=== PATIENT | male | born 1975 ===

== ENCOUNTER → 2023-01-25 16:00 | Outpatient (CLI) | payer OTHER, SELFPAY ==
--- NOTE | 2023-01-25 16:02 | DI.US.S_ITS ---
PROCEDURE: US ABDOMEN LIMITED INDICATIONS: INCREASED TRANSAMINASE TECHNIQUE: Real-time scanning was performed of the abdominal and retroperitoneal organs, with image documentation. COMPARISON: None. FINDINGS: Liver: Increased echogenicity with posterior attenuation. Gallbladder: Unremarkable. Biliary ducts: Not well visualized. Pancreas: Visualized portions of the pancreas are sonographically normal. Miscellaneous: No free abdominal fluid. IMPRESSION: Moderate to severe hepatic steatosis. Dictated by: Bethel Jules M.D. on 01/25/2023 at 17:02 Approved by: Bethel Jules M.D. on 01/25/2023 at 17:02
== END ==
PROVIDERS: Referring Provider Registered Nurse; Visit Provider Registered Nurse
DX: K76.0 Fatty (change of) liver, not elsewhere classified (principal); R74.01 Elevation of levels of liver transaminase levels
CPT/HCPCS: 76705